=== PATIENT | female | born 1960 | race Caucasian/White ===

== ENCOUNTER 2018-02-05 10:06 | Inpatient (IN) | payer MEDICAID, OTHER ==
[2018-02-05 11:01] LABS: ADD MAN DIFF? NO
[2018-02-05 11:06] LABS: BASOPHIL # 0.1 10^3/ul (0.0-0.1); BASOPHILS % 0.8 % (0.0-2.0); EOSINOPHILS # 0.2 10^3/ul (0.0-0.5); HEMATOCRIT 41.8 % (37.0-47.0); HEMOGLOBIN 13.9 g/dl (12.0-16.0); LYMPHOCYTES # 2.2 10^3/ul (0.8-2.9); LYMPHOCYTES % 36.8 % (15.0-51.0); MEAN CORPUSCULAR HEMOGLOBIN 29.1 pg (29.0-33.0); MEAN CORPUSCULAR HGB CONC 33.3 g/dl (32.0-37.0); MEAN CORPUSCULAR VOLUME 87.6 fl (82.0-101.0); MEAN PLATELET VOLUME 10.5 fl (7.4-10.4); MONOCYTE # 0.4 10^3/ul (0.3-0.9); MONOCYTES % 6.9 % (0.0-11.0); NEUTROPHIL # 3.1 10^3/ul (1.6-7.5); NEUTROPHILS % 51.3 % (39.0-77.0); PLATELET COUNT 287 10^3/UL (140-415); RED BLOOD COUNT 4.77 10^6/ul (4.20-5.40); RED CELL DISTRIBUTION WIDTH 13.1 % (11.5-14.5)
[2018-02-05 11:26] LABS: ALANINE AMINOTRANSFERASE 14 IU/L (13-69); ALBUMIN/GLOBULIN RATIO 1.17; ALKALINE PHOSPHATASE 67 IU/L (42-121); ANION GAP 12 (8-16); ASPARTATE AMINO TRANSFERASE 18 IU/L (15-46); BILIRUBIN,INDIRECT 0.3 mg/dl (0-1.1); BILIRUBIN,TOTAL 0.3 mg/dl (0.2-1.3); BLOOD UREA NITROGEN 18 mg/dl (7-20); CALCIUM 9.2 mg/dl (8.4-10.2); CARBON DIOXIDE 25 mmol/L (21-31); CHLORIDE 106 mmol/L (97-110); CREATININE 0.75 mg/dl (0.44-1.00); GLUCOSE 128 mg/dl (70-220); SODIUM 139 mmol/L (135-144); TOTAL PROTEIN 7.4 g/dl (6.1-8.1)
[2018-02-05] MEDS: SOD CHLORIDE 0.9% 100 ML (12:00)
[2018-02-05] MEDS: IOHEXOL 300MG/ML 150 ML BTL (12:00)
[2018-02-05] MEDS: KETOROLAC 30 MG INJ IV (13:17)
[2018-02-05] MEDS: ONDANSETRON 4 MG INJ IV (13:20)
[2018-02-05] MEDS ORDERED: ONDANSETRON 4 MG INJ IV (17:00)
[2018-02-05] MEDS ORDERED: LORAZEPAM 2 MG INJ IV (17:00)
[2018-02-05] MEDS ORDERED: morphine 2 MG INJ IV (17:00)
[2018-02-05] MEDS ORDERED: ACETAMINOPHEN 325 MG TAB PO (17:00)
[2018-02-05] MEDS ORDERED: NACL 0.9% 3 ML SYG IV (17:00)
[2018-02-05] MEDS: DEXTROSE 5%-0.45% NACL 1,000 ML IV ×2 (17:35→22:45)
[2018-02-05] MEDS ORDERED: LIDOCAINE 1% (MPF) 30 ML INJ (19:14)
[2018-02-05] MEDS ORDERED: BUPIVACAINE 0.25%/EPI (SDV) 30 ML INJ (19:14)
[2018-02-05] MEDS ORDERED: CEFAZOLIN 1 GM INJ (19:38)
[2018-02-05] MEDS ORDERED: MIDAZOLAM 1 MG/ML 2 ML INJ (19:38)
[2018-02-05] MEDS ORDERED: ROPIVACAINE 0.5 % 30 ML VIAL (19:38)
[2018-02-05] MEDS ORDERED: ROCURONIUM 50 MG INJ (19:38)
[2018-02-05] MEDS ORDERED: PROPOFOL 20 ML (19:38)
[2018-02-05] MEDS ORDERED: PHENYLephrine (100 MCG/ML) 5ML SYG (19:52)
[2018-02-05] MEDS ORDERED: OXYCODONE/ACETAMINOPHEN (5/325) TAB PO ×2 (20:00)
[2018-02-05] MEDS ORDERED: DEXAMETHASONE 4 MG/ML 1 ML INJ ×2 (20:17→20:22)
[2018-02-05] MEDS ORDERED: ONDANSETRON 4 MG INJ (20:17)
[2018-02-05] MEDS ORDERED: ACETAMINOPHEN 1000MG/100ML IV 100 ML (20:17)
[2018-02-05] MEDS ORDERED: METOCLOPRAMIDE 10 MG INJ (20:17)
[2018-02-05] MEDS ORDERED: KETOROLAC 30 MG INJ (20:17)
[2018-02-05] MEDS ORDERED: SUGAMMADEX SODIUM 200 MG/2 ML VIAL IV ×2 (20:18→20:24)
[2018-02-05] MEDS: OXYCODONE/ACETAMINOPHEN (5/325) TAB PO (21:37)
[2018-02-05] MEDS: FAMOTIDINE 20 MG INJ IV (21:38)
[2018-02-05 22:44] LABS: ADD MAN DIFF? NO
[2018-02-05 22:45] LABS: BASOPHIL # 0.1 10^3/ul (0.0-0.1); BASOPHILS % 0.5 % (0.0-2.0); EOSINOPHILS # 0.1 10^3/ul (0.0-0.5); EOSINOPHILS % 1.4 % (0.0-7.0); HEMATOCRIT 40.1 % (37.0-47.0); HEMOGLOBIN 12.8 g/dl (12.0-16.0); MEAN CORPUSCULAR HEMOGLOBIN 28.6 pg (29.0-33.0); MEAN CORPUSCULAR HGB CONC 31.9 g/dl (32.0-37.0); MEAN CORPUSCULAR VOLUME 89.5 fl (82.0-101.0); MEAN PLATELET VOLUME 10.4 fl (7.4-10.4); MONOCYTE # 0.3 10^3/ul (0.3-0.9); MONOCYTES % 2.9 % (0.0-11.0); NEUTROPHIL # 7.5 10^3/ul (1.6-7.5); PLATELET COUNT 236 10^3/UL (140-415); RED BLOOD COUNT 4.48 10^6/ul (4.20-5.40); RED CELL DISTRIBUTION WIDTH 13.3 % (11.5-14.5)
[2018-02-05] MEDS: IBUPROFEN 600 MG TAB PO (23:57)
[2018-02-06 05:06] LABS: ADD MAN DIFF? NO
[2018-02-06 05:11] LABS: WHITE BLOOD COUNT 6.8 10^3/ul (4.8-10.8)
[2018-02-06 05:11] LABS: BASOPHILS % 0.1 % (0.0-2.0); HEMATOCRIT 40.5 % (37.0-47.0); HEMOGLOBIN 13.6 g/dl (12.0-16.0); LYMPHOCYTES # 1.1 10^3/ul (0.8-2.9); LYMPHOCYTES % 16.2 % (15.0-51.0); MEAN CORPUSCULAR HEMOGLOBIN 29.6 pg (29.0-33.0); MEAN CORPUSCULAR HGB CONC 33.6 g/dl (32.0-37.0); MEAN PLATELET VOLUME 10.6 fl (7.4-10.4); MONOCYTE # 0.1 10^3/ul (0.3-0.9); MONOCYTES % 1.2 % (0.0-11.0); NEUTROPHIL # 5.6 10^3/ul (1.6-7.5); NEUTROPHILS % 82.2 % (39.0-77.0); PLATELET COUNT 267 10^3/UL (140-415)
[2018-02-06 05:41] LABS: ANION GAP 12 (8-16); BLOOD UREA NITROGEN 15 mg/dl (7-20); CALCIUM 8.7 mg/dl (8.4-10.2); CARBON DIOXIDE 24 mmol/L (21-31); CHLORIDE 105 mmol/L (97-110); GLUCOSE 191 mg/dl (70-220); MAGNESIUM 1.7 mg/dl (1.7-2.5); POTASSIUM 4.1 mmol/L (3.5-5.1); SODIUM 137 mmol/L (135-144)
[2018-02-06] MEDS: IBUPROFEN 600 MG TAB PO (05:58)
[2018-02-06] MEDS: FAMOTIDINE 20 MG INJ IV (08:05)
== END 2018-02-06 11:45 | disposition home or self-care (01) | DRG 355 ==
LOC: FTE 10:06 → REC 16:44 → MS1 23:02
PROC: 0WUF4JZ Supplement Abdominal Wall with Synthetic Substitute, Percutaneous Endoscopic Approach (ICD-10-PCS; principal; 2018-02-05 19:00)
DX: K43.0 Incisional hernia with obstruction, without gangrene (principal); K59.00 Constipation, unspecified
CPT/HCPCS: 74177; 80048; 80053; 83735; 85025; 96361; 96374; 96375; 99285-25